=== PATIENT | female | born 1995 | race Caucasian/White ===

== ENCOUNTER 2025-04-20 17:58 | Emergency (ER) | payer MEDICAID ==
[~2025-04-20] VITALS: Ht 172.7 cm; Wt 60.3 kg
[2025-04-20 19:15] LABS: PLATELET COUNT (AUTO) 236 K/uL (150-450); RED BLOOD CELL COUNT(AUTO) 4.73 MIL/uL (4.0-5.2); RED CELL DISTRIBUTION WIDTH 14.3 % (11.5-15.0); WHITE BLOOD COUNT (AUTO) 7.0 K/uL (4.3-11.0)
[2025-04-20 19:21] LABS: CALCIUM, SERUM 9.0 mg/dL (8.5-10.1); CREATININE 0.5 mg/dL (0.6-1.3); SODIUM SERUM 138.0 mmol/L (136-145); UREA NITROGEN, BLOOD 11.0 mg/dL (7-18)
[2025-04-20 19:23] LABS: APPEARANCE,URINE CLEAR (CLEAR); BLOOD, URINE Trace-intact Ery/uL (NEGATIVE); LEUKOCYTE ESTERASE ,URINE Negative (NEGATIVE); NITRITE, URINE NEGATIVE (NEGATIVE); UGLUCOSE Negative (NEGATIVE)
[2025-04-20 19:24] LABS: ADD URINE CULTURE NO; SQUAMOUS EPITHELIAL CELL,UR Few /HPF (None Seen)
[2025-04-20 19:57] LABS: PREGNANCY TEST SERUM QUAN 77129.0 mIU/mL (0-6)
[2025-04-20 22:54] VITALS: BP 102/65; TEMP 98; O2SAT 98
== END 2025-04-20 22:55 | disposition home or self-care (01) ==
LOC: ER 18:08
DX: O20.8 Other hemorrhage in early pregnancy (principal); Z3A.01 Less than 8 weeks gestation of pregnancy; R10.20 Pelvic and perineal pain unspecified side
CPT/HCPCS: 99285; 76805; 96372; 85025; 80048; 87086; 81001; 36415; 86850; 84702; J2790